=== PATIENT | male | born 1930 | race Caucasian/White ===

== ENCOUNTER 2016-10-09 17:21 | Emergency (ER) | payer BC ==
[2016-10-09 18:00] LABS: ABSOLUTE NEUTROPHIL COUNT 5.3 K/mm3 (1.8-7.7); BASO % 0.6 % (0.2-1.0); EOS # 0.1 (0.0-0.5); EOS % 1.1 % (0.9-2.9); HEMOGLOBIN 12.9 gm/l (14.0-18.0); IMM NEUT% 0.6 % (0-1); LYMPH # 1.2 (1.0-4.8); LYMPH % 16.5 % (15-45); MEAN CELL VOLUME 84.4 fl (80.0-94.0); MEAN CORPUSCULAR HEMOGLOBIN 27.2 pg (27.0-31.0); MEAN CORPUSCULAR HGB CONC 32.3 g/dl (33.0-37.0); MEAN PLATELET VOLUME 9.8 fl (7.4-10.4); MONO # 0.6 (0.0-0.8); MONO % 8.3 % (4-12); NEUT % 72.9 % (43-75); PLATELET COUNT 309 K/mm3 (130-400); RED CELL DISTRIBUTION WIDTH 14.8 % (11.5-14.5)
[2016-10-09 18:18] LABS: ALB/GLOB RATIO 1.7 (>1.0); ALBUMIN 4.3 gm/dL (3.5-5.7); CALCIUM 9.9 mg/dL (8.6-10.3)
[2016-10-09 18:22] LABS: TROPONIN I 0.01 ng/ml (0.0-0.06)
[2016-10-09 18:25] LABS: CKMB ISOENZYME 2.7 ng/ml (0.6-6.3)
[2016-10-09] MEDS ORDERED: ASPIRIN CHEWTAB 81 MG TABLET ONE (18:34)
--- NOTE | 2016-10-09 19:04 | RAD ---
CHEST - 2 VIEWS COMPARISON: Chest 2 views, 03/03/2016 HISTORY: Chest pain. FINDINGS: Views: Frontal and lateral chest Lungs: No acute finding. Coarse bronchovascular markings. Heart and vessels: No change. Calcification of the aortic arch. Trachea and bronchi: Normal Mediastinum and singh: Normal Costophrenic sulci: Normal Chest wall and bones: The degenerative changes. Upper abdomen: Normal. IMPRESSION: No acute finding. Pulmonary fibrosis. Atherosclerosis of the aorta.
[2016-10-09] MEDS ORDERED: DILTIAZEM HCL 5 MG/ML 5ML VIAL IV ONE (20:45)
== END 2016-10-09 21:21 | disposition home or self-care (01) ==
LOC: ED 17:21
DX: R07.9 Chest pain, unspecified (principal); I48.2 Chronic atrial fibrillation; Z79.01 Long term (current) use of anticoagulants; Z79.84 Long term (current) use of oral hypoglycemic drugs; Z79.899 Other long term (current) drug therapy; Z79.891 Long term (current) use of opiate analgesic; E11.9 Type 2 diabetes mellitus without complications; Z86.73 Personal history of transient ischemic attack (TIA), and cerebral infarction without residual deficits; Z88.8 Allergy status to other drugs, medicaments and biological substances; E78.5 Hyperlipidemia, unspecified; I10 Essential (primary) hypertension; Z87.891 Personal history of nicotine dependence
CPT/HCPCS: 85025; 82553; 80053; 84484 ×2; 71020; 99284 ×2; 96374; 93005; A9270

== ENCOUNTER 2016-10-24 05:37 | Emergency (ER) | payer BC, MEDICARE ==
[2016-10-24] MEDS ORDERED: FUROSEMIDE 40 MG/4 ML VIAL ONE (07:26)
[2016-10-24 07:34] LABS: ABSOLUTE NEUTROPHIL COUNT 6.7 K/mm3 (1.8-7.7); BASO # 0.1 K/mm3 (0.0-0.2); BASO % 0.7 % (0.2-1.0); EOS # 0.1 (0.0-0.5); EOS % 0.9 % (0.9-2.9); HEMATOCRIT 40.5 % (32.0-52.0); HEMOGLOBIN 12.9 gm/l (14.0-18.0); IMM NEUT% 0.5 % (0-1); LYMPH % 12.2 % (15-45); MEAN CELL VOLUME 82.8 fl (80.0-94.0); MEAN CORPUSCULAR HEMOGLOBIN 26.4 pg (27.0-31.0); MEAN CORPUSCULAR HGB CONC 31.9 g/dl (33.0-37.0); MEAN PLATELET VOLUME 9.5 fl (7.4-10.4); MONO # 0.6 (0.0-0.8); MONO % 6.6 % (4-12); NEUT % 79.1 % (43-75); PLATELET COUNT 322 K/mm3 (130-400); RED CELL DISTRIBUTION WIDTH 14.9 % (11.5-14.5)
[2016-10-24 07:44] LABS: ALB/GLOB RATIO 1.6 (>1.0); ALBUMIN 4.2 gm/dL (3.5-5.7); CALCIUM 9.5 mg/dL (8.6-10.3)
[2016-10-24 07:48] LABS: TROPONIN I 0.01 ng/ml (0.0-0.06)
[2016-10-24 07:51] LABS: CKMB ISOENZYME 3.1 ng/ml (0.6-6.3)
--- NOTE | 2016-10-24 08:45 | RAD ---
10/24/2016 8:39 AM CHEST - 2 VIEWS History: Dyspnea Comparison: 10/09/2016 Findings: Two views of the chest are obtained. The lungs demonstrates new blunting of the right costophrenic angle. Additionally there is increasing prominence of the central, perihilar vasculature with increasing coarseness the interstitium. The cardiomediastinal silhouette is unremarkable.. The osseous structures are intact.. IMPRESSION: Right-sided effusion with increasing coarseness the interstitium and prominence to the perihilar vasculature worrisome for heart failure.
[2016-10-24 09:02] LABS: PH,URINE 6.5 (5.0-8.0); URINE BILIRUBIN NEGATIVE (NEGATIVE); URINE BLOOD NEGATIVE (NEGATIVE); URINE GLUCOSE (UA) NEGATIVE (NEGATIVE); URINE LEUKOCYTE ESTERASE NEGATIVE (NEGATIVE); URINE NITRITE NEGATIVE (NEGATIVE); URINE PROTEIN NEGATIVE (NEGATIVE); URINE UROBILINOGEN NORMAL (0-1 mg/dl)
[2016-10-24 09:04] LABS: URINE APPEARANCE CLEAR; URINE COLOR YELLOW
[2016-10-24] MEDS ORDERED: Potassium Chloride ORAL SOLN 20 MEQ/15 ML UDCUP ONE (09:23)
== END 2016-10-24 10:03 | disposition home or self-care (01) ==
LOC: ED 05:37
DX: I11.0 Hypertensive heart disease with heart failure (principal); I50.9 Heart failure, unspecified; E11.9 Type 2 diabetes mellitus without complications; Z79.84 Long term (current) use of oral hypoglycemic drugs; Z79.01 Long term (current) use of anticoagulants
CPT/HCPCS: 83880; 85025; 82553; 80053; 81003; 84484; 71020; 99284 ×2; 96374; J1940; A9270